=== PATIENT | female | born 1985 | race Caucasian/White ===

== ENCOUNTER → 2017-05-28 08:50 | Outpatient (CLI) | payer OTHER, SELFPAY ==
--- NOTE | 2017-05-28 08:54 | US_ITS ---
STUDY: RENAL ULTRASOUND - COMPLETE REASON FOR EXAM: Female, 31 years old. Febrile illness and back pain. TECHNIQUE: Ultrasound evaluation of the kidneys was performed with real-time and static silver-scale imaging. COMPARISON: None. FINDINGS: RIGHT KIDNEY: Normal location of the right kidney, which is normal in size. The right kidney measures 11.4 cm x 4.7 cm x 4.6 cm. There is a normal cortex of the right kidney. The renal cortex measures 1.8 cm. There is no right renal mass or cyst. There are no right renal calculi. There is no right hydronephrosis. DISTAL RIGHT URETER: There is non-visualization of the distal right ureter. There is no demonstrated right ureterovesical junction calculus. There is no demonstrated right ureteral jet. LEFT KIDNEY: Normal location of the left kidney, which is normal in size. The left kidney measures 12.2 cm x 4.5 cm x 4.5 cm. There is a normal cortex of the left kidney. The renal cortex measures 1.4 cm. There is no left renal mass or cyst. There are no left renal calculi. There is no left hydronephrosis. DISTAL LEFT URETER: There is non-visualization of the distal left ureter. There is no demonstrated left ureterovesical junction calculus. There is no demonstrated left ureteral jet. BLADDER: There is a normal wall thickness of the distended urinary bladder. There is no demonstrated mass within the urinary bladder. There are no demonstrated bladder calculi. US/Kidney and Bladder IMPRESSION: Normal ultrasound of the kidneys and urinary bladder. Electronically Signed: Janes Nuñez MD at 14:02 EST Tel [phone], Service support ,
== END ==
PROVIDERS: Family Provider Family Medicine; PCP Family Medicine; Visit Provider Family Medicine
DX: R50.9 Fever, unspecified (principal)
CPT/HCPCS: 76770

== ENCOUNTER → 2017-09-17 13:38 | Outpatient (CLI) | payer OTHER, SELFPAY ==
[2017-09-17 14:28] LABS: Absolute Lymphocyte Count 0.97 X10^3/ul (0.83-4.51); Absolute Neutrophil Count 4.2 X10^3/uL (2.0-7.7); Basophil# 0.03 X10^3/uL; Basophil% 0.5 % (0-1); Eosinophil# 0.04 X10^3/uL; Eosinophils% 0.7 % (0-5); Hematocrit 35.1 % (37-47); Hemoglobin 10.9 g/dl (12.0-15.0); Lymphocyte # 0.97 X10^3/ul (4.0); Lymphocyte % 17.4 % (19-41); Mean Corp Hgb Conc 31.1 g/gl (32-36); Mean Corpuscular Hgb 26.5 pg (27.0-32.0); Mean Corpuscular Volume 85.4 fL (81-99); Mean Platelet Vol. 11.4 fl (6.2-12.0); Monocyte# 0.37 X10^3/uL; Monocyte% 6.6 % (0-10); Neutrophil # 4.16 X10^3/uL (2.7-7.7); Neutrophil % 74.8 % (47-70); Platelet Count 348 K/mm3 (150-450); RBC Distribution Width CV 15.1 % (11.6-14.6); RBC Distribution Width SD 47.4 fl (35.1-43.9); Red Blood Count 4.11 M/mm3 (4.2-5.4); White Blood Count 5.6 K/mm3 (4.4-11.0)
[2017-09-17 14:29] LABS: POSITIVE COUNT NO; POSITIVE DIFFERENTIAL NO; POSITIVE MORPHOLOGY NO
[2017-09-17 14:46] LABS: Anion Gap 8 (5-15); BUN 10 mg/dL (7-18); BUN/Creat Ratio 18.1 RATIO (10-20); Calcium,Total 8.5 mg/dL (8.5-10.1); Chloride 106 mmol/L (98-107); Creatinine, Serum 0.55 mg/dL (0.55-1.02); EST Glomerular Filtration Rate 135 mL/min (>60); Est Glom Filt Rate - Afr Amer 163 mL/min (>60); Glucose 80 mg/dL (74-106); Potassium 3.9 mmol/L (3.5-5.1); Sodium Level 141 mmol/L (136-145)
== END ==
PROVIDERS: Family Provider Family Medicine; PCP Family Medicine; Visit Provider Family Medicine
DX: R55 Syncope and collapse (principal)
CPT/HCPCS: 36415; 80048; 85025

== ENCOUNTER → 2017-12-10 15:33 | Outpatient (CLI) | payer OTHER, SELFPAY ==
[2017-12-10 17:48] LABS: Anion Gap 11 (5-15); BUN 9 mg/dL (7-18); BUN/Creat Ratio 14.2 RATIO (10-20); Calcium,Total 8.9 mg/dL (8.5-10.1); Chloride 106 mmol/L (98-107); Creatinine, Serum 0.63 mg/dL (0.55-1.02); EST Glomerular Filtration Rate 115 mL/min (>60); Est Glom Filt Rate - Afr Amer 139 mL/min (>60); Glucose 85 mg/dL (74-106); Magnesium 2.4 mg/dL (1.6-2.6); Potassium 4.2 mmol/L (3.5-5.1); Sodium Level 142 mmol/L (136-145)
[2017-12-10 18:27] LABS: Absolute Lymphocyte Count 1.14 X10^3/ul (0.83-4.51); Absolute Neutrophil Count 4.4 X10^3/uL (2.0-7.7); Basophil# 0.02 X10^3/uL; Basophil% 0.3 % (0-1); Eosinophil# 0.05 X10^3/uL; Eosinophils% 0.8 % (0-5); Hematocrit 36.5 % (37-47); Hemoglobin 11.5 g/dl (12.0-15.0); Lymphocyte # 1.14 X10^3/ul (4.0); Lymphocyte % 18.8 % (19-41); Mean Corp Hgb Conc 31.5 g/gl (32-36); Mean Corpuscular Hgb 27.3 pg (27.0-32.0); Mean Corpuscular Volume 86.5 fL (81-99); Mean Platelet Vol. 11.9 fl (6.2-12.0); Monocyte# 0.49 X10^3/uL; Monocyte% 8.1 % (0-10); Neutrophil # 4.38 X10^3/uL (2.7-7.7); Platelet Count 309 K/mm3 (150-450); RBC Distribution Width CV 14.9 % (11.6-14.6); RBC Distribution Width SD 46.4 fl (35.1-43.9); Red Blood Count 4.22 M/mm3 (4.2-5.4); White Blood Count 6.1 K/mm3 (4.4-11.0)
[2017-12-10 18:34] LABS: POSITIVE COUNT NO; POSITIVE DIFFERENTIAL NO; POSITIVE MORPHOLOGY NO
== END ==
PROVIDERS: Family Provider Family Medicine; PCP Family Medicine; Visit Provider Family Medicine
DX: R42 Dizziness and giddiness (principal)
CPT/HCPCS: 36415; 80048; 83735; 85025

== ENCOUNTER → 2017-12-15 10:44 | Outpatient (CLI) | payer OTHER, SELFPAY ==
--- NOTE | 2017-12-15 13:23 | STRESSREP ---
Stress Test Report Date: 12/15/2017 Procedure: Exercise tolerance test Indications: Chest pain; palpitations Consent: Per the patient Procedure: The patient exercised on a Campos protocol for 9 minutes and 30 seconds completing Stage 3 and 30 seconds of Stage IV achieving a peak heart rate of 184 bpm (98 % predicted maximal heart rate) with a peak blood pressure 152/84 mmHg and a peak MET capacity of approximately 10 MET's. The baseline ECG demonstrated normal sinus rhythm. The peak exercise ECG demonstrated no obvious ECG changes. There were no cardiac dysrhythmias pretest, during exercise, or recovery. The functional capacity was considered good. The patient had no complaint of chest discomfort during exercise or recovery. The examination was discontinued secondary to dyspnea. Impression: 1. Technically adequate (percent predicted maximal heart rate greater than 85%) exercise tolerance test 2. Negative (adequate) ECG exercise tolerance test 3. No cardiac dysrhythmias during exercise or recovery This note was generated with Viewsteration software. It may contain incorrect words, spelling, and punctuation that were not noted in checking the note before signing.
== END ==
PROVIDERS: Family Provider Family Medicine; PCP Family Medicine; Visit Provider Internal Medicine Cardiovascular Disease
DX: R07.9 Chest pain, unspecified (principal); R00.2 Palpitations
CPT/HCPCS: 93017

== ENCOUNTER → 2017-12-18 08:55 | Outpatient (CLI) | payer OTHER, SELFPAY | PROVIDERS: Family Provider Family Medicine; PCP Family Medicine; Visit Provider Family Medicine | DX: R53.83 Other fatigue (principal) | CPT/HCPCS: 36415; 84443 ==

== ENCOUNTER → 2018-03-31 12:11 | Outpatient (CLI) | payer OTHER, SELFPAY | PROVIDERS: Family Provider Family Medicine; PCP Family Medicine; Referring Provider Family Medicine; Visit Provider Family Medicine | DX: R50.9 Fever, unspecified (principal) | CPT/HCPCS: 87070; 87077; 87086; 87088; 87186 ==

== ENCOUNTER → 2018-06-09 11:54 | Outpatient (CLI) | payer OTHER, SELFPAY ==
--- NOTE | 2018-06-09 11:59 | RAD_ITS ---
STUDY: X-RAY - LEFT TIBIA AND FIBULA REASON FOR EXAM: Female, 32 years old. Nodule on anterior lower leg. TECHNIQUE: 2 view(s) of the tibia and fibula were obtained. COMPARISON: None. FINDINGS: There is no evidence of fracture or dislocation. There are no significant degenerative changes. There are no radiodense foreign bodies. There is no soft tissue lesion identified. RAD/Tibia & Fibula 2 Views IMPRESSION: No fracture or dislocation. No soft tissue lesion identified. If indicated, further evaluation with ultrasound, CT or MRI can be performed. Electronically Signed: Bayron Gates, at 14:48 EST Tel , Service support ,
== END ==
PROVIDERS: Family Provider Family Medicine; PCP Family Medicine; Referring Provider Family Medicine; Visit Provider Family Medicine
DX: R22.9 Localized swelling, mass and lump, unspecified (principal)
CPT/HCPCS: 73590

== ENCOUNTER → 2018-06-21 08:31 | Outpatient (CLI) | payer OTHER, SELFPAY ==
--- NOTE | 2018-06-21 08:33 | US_ITS ---
STUDY: SUPERFICIAL ULTRASOUND - LEFT LOWER EXTREMITY REASON FOR EXAM: Female, 32 years old. 2 palpable lumps of left lower extremity TECHNIQUE: A superficial ultrasound was performed with real-time and static cespedes-scale imaging. COMPARISON: None. FINDINGS: There are 2 subcutaneous hypoechoic nodules with minimal internal vascularity. There is no surrounding architectural distortion. The nodule located anterior and superior to the left foot measures 1.0 x 0.8 x 0.6 cm. The second nodule of the anterior mid left leg measures 0.8 x 0.7 x 0.4 cm. US/Ext Non Vasc Limited/Soft Tiss IMPRESSION: Well-defined hypoechoic subcutaneous nodules of the left leg as described above. Electronically Signed: Leroy Eason MD at 19:37 EST , Service support ,
== END ==
PROVIDERS: Family Provider Family Medicine; PCP Family Medicine; Referring Provider Family Medicine; Visit Provider Family Medicine
DX: R22.42 Localized swelling, mass and lump, left lower limb (principal)
CPT/HCPCS: 76882

== ENCOUNTER → 2018-08-02 | Outpatient (CLI) | payer OTHER, SELFPAY ==
[2018-07-12 13:12] VITALS: BMI 27.3
--- NOTE | 2018-08-02 13:56 | BI_ITS ---
MAMMOGRAPHY - BILATERAL DIAGNOSTIC REASON FOR EXAM: Female, 32 years old. Right axillary lump. PERTINENT HISTORY: Grandmother with breast cancer. TECHNIQUE: Digital bilateral breast rosa (3D mammographic acquisition) in the CC and MLO projections. 2-D mediolateral oblique (MLO) and craniocaudad (CC) views of both breasts were obtained. CAD: Full Field Digital Mammography with Computer Added Detection was performed. COMPARISON: None. Baseline examination. FINDINGS: Breast Composition: The breasts are extremely dense, which lowers the sensitivity of mammography. There is a 0.84 cm x 1 cm well-defined nodule in the upper lateral aspect of the right breast. Correlation with ultrasound is recommended. No other significant abnormalities are identified. BI/DIAG MAMM W/CAD, BILAT IMPRESSION: 0.84 cm x 1 cm well-defined nodule in the upper lateral aspect of the right breast. Correlation with ultrasound is recommended. Ultrasound correlation is also recommended for the palpable right axillary density. ASSESSMENT CATEGORY: BIRADS Category 0: Incomplete. Need additional imaging evaluation. A letter regarding these results will be sent to the patient by the facility within 30 days. Approximately 10% of breast cancers are not detected by mammography. A normal mammogram should not delay biopsy of a clinically suspicious abnormality. Electronically Signed: Jnaes Nuñez, at 9:31 EDT , Service support ,
--- NOTE | 2018-08-02 14:44 | US_ITS ---
STUDY: ULTRASOUND BREAST - RIGHT REASON FOR EXAM: Female, 32 years old. Right axillary lump. TECHNIQUE: Axial and longitudinal images of the RIGHT breast were performed with a high resolution ultrasound transducer. COMPARISON: Comparison is made with prior mammogram done earlier in the day. FINDINGS: RIGHT Breast: The palpable abnormality corresponds to 1.3 cm x 0.6 cm x 0.4 cm benign-appearing lymph node. US/Breast Limited Unilateral IMPRESSION: The palpable abnormality corresponds to 1.3 cm x 0.6 cm x 0.4 cm benign-appearing lymph node. ASSESSMENT CATEGORY: BIRADS Category 2: Benign. A letter regarding these results will be sent to the patient by the facility within 30 days. Electronically Signed: Janes Nuñez, at 9:27 EDT , Service support ,
== END | disposition home or self-care (01) ==
PROVIDERS: Family Provider Family Medicine; PCP Family Medicine; Referring Provider Family Medicine; Visit Provider Family Medicine
DX: R22.31 Localized swelling, mass and lump, right upper limb (principal); N63.10 Unspecified lump in the right breast, unspecified quadrant
CPT/HCPCS: 76642; 77062; 77066; G0279

== ENCOUNTER → 2018-08-10 13:54 | Outpatient (CLI) | payer OTHER, SELFPAY ==
[2018-08-04 08:46] VITALS: BMI 27.3
--- NOTE | 2018-08-10 14:03 | US_ITS ---
STUDY: ULTRASOUND TRANSVAGINAL CLINICAL: Female, 32 years old. Irregular menses TECHNIQUE: Transabdominal and Transvaginal COMPARISON: None. FINDINGS: Normal uterine size measuring 7 x 4.6 x 4.2 cm in maximal craniocaudal dimension. There are no myometrial masses. Normal endometrial thickness measuring 13 mm. There are no endometrial masses, and there is no fluid in the endometrial cavity. Normal uterine cervix. Normal right ovary, measuring 2.5 x 2.5 x 1.6 cm. There is a cyst measuring 1.1 x 1.3 x 1.2 cm Normal left ovary, measuring 3.3 x 2.2 x 1.8 cm. There is a cyst measuring 2.4 x 2.1 x 1.9 cm There is trace of free fluid in the pelvis. Polycystic ovary disease: No. US/Pelvic (Non ) IMPRESSION: Small bilateral ovarian cysts and trace of fluid in the cul-de-sac possibly on the basis of recent ovulation Thickened endometrial lining of uncertain significance Electronically Signed: Yaw Campbell MD at 19:26 EDT , Service support ,
--- NOTE | 2018-08-10 14:03 | US_ITS ---
STUDY: ULTRASOUND TRANSVAGINAL CLINICAL: Female, 32 years old. Irregular menses TECHNIQUE: Transabdominal and Transvaginal COMPARISON: None. FINDINGS: Normal uterine size measuring 7 x 4.6 x 4.2 cm in maximal craniocaudal dimension. There are no myometrial masses. Normal endometrial thickness measuring 13 mm. There are no endometrial masses, and there is no fluid in the endometrial cavity. Normal uterine cervix. Normal right ovary, measuring 2.5 x 2.5 x 1.6 cm. There is a cyst measuring 1.1 x 1.3 x 1.2 cm Normal left ovary, measuring 3.3 x 2.2 x 1.8 cm. There is a cyst measuring 2.4 x 2.1 x 1.9 cm There is trace of free fluid in the pelvis. Polycystic ovary disease: No. US/Transvaginal Non- IMPRESSION: Small bilateral ovarian cysts and trace of fluid in the cul-de-sac possibly on the basis of recent ovulation Thickened endometrial lining of uncertain significance Electronically Signed: Yaw Campbell MD at 19:26 EDT , Service support ,
== END ==
PROVIDERS: Family Provider Family Medicine; PCP Family Medicine; Referring Provider Obstetrics & Gynecology; Visit Provider Obstetrics & Gynecology
DX: F32.81 Premenstrual dysphoric disorder (principal)
CPT/HCPCS: 76830; 76856; 93976

== ENCOUNTER → 2018-08-11 15:46 | Outpatient (CLI) | payer OTHER, SELFPAY ==
--- NOTE | 2018-08-11 | MASS_PTH ---
PATIENT: SOLANGE JARAMILLO LOC: [facility] U#:[id number] AGE/SX: 39/F ROOM: RE08/11/[address]: Dr. Mynor Lund MD : 1985 BED: DIS: SPEC #: [id number] RECD: 08/11/18 15:26 STATUS: SAKSHI MARIKA #: [id number] MERCEDEZ: 08/11/18 00:[address]: Mynor Lund DEPT: SURGICAL PATHOLOGY RECD BY: Jose Garcia ENTERED: 08/12/18 14:22 SP TYPE: Mass OTHR DR: Dr. Jamie Cruz MD Tissues: Leg, NOS Procedures: Surgery Specimen Level IV HEADER OPERATION: Excision of pretibial mass left lower leg PRE-OP DIAGNOSIS: Left lower extremity pretibial mass TISSUE SUBMITTED: Left lower leg MICROSCOPIC DIAGNOSIS Left lower leg, biopsy: A minute focus of benign spindle cell proliferation, most consistent with schwannoma (0.5 cm in greatest dimension). Additional fragment of mature adipose tissue, consistent with lipoma. CARLOS ALBERTO:stan 08/13/18 COMMENT Immunohistochemistry ([id number]) supports the above diagnosis. Case has been reviewed in consultation with Dr. Anderson who concurs with the above diagnosis. IDC:AM MICROSCOPIC DESCRIPTION Slides are reviewed. GROSS DESCRIPTION Received in fixative is one container labeled with the patient's name and designated left lower leg. The specimen consists of multiple irregular fragments of hester-pink to yellow soft tissue that in aggregate measure 2 x 1.5 x 0.3 cm. The entire specimen is submitted in one cassette. / CARLOS ALBERTO:stan 08/12/18 TC:1 CPT: 32470
--- NOTE | 2018-08-11 | IMM_PTH ---
PATIENT: SOLANGE JARAMILLO LOC: [facility] U#:[id number] AGE/SX: 39/F ROOM: RE08/11/[address]: Dr. Mynor Lund MD : 1985 BED: DIS: SPEC #: [id number] RECD: 08/13/18 13:41 STATUS: SAKSHI REQ #: [id number] MERCEDEZ: 08/11/18 00:[address]: Mynor Lund DEPT: IMMUNOHISTOCHEMISTRY RECD BY: Meka Espinosa ENTERED: 08/13/18 13:46 SP TYPE: IMMUNO OTHR DR: Dr. Jamie Cruz MD Tissues: Left leg Procedures: CD31 (add) DESMIN (add) Vimentin (add) FACTOR VIII (add) Smooth Muscle Actin S-100 (add) PHYSICIAN & INSTITUTION [place] [phone] SPECIMEN INFORMATION: Tissue Source: Left lower leg Clinical Info: Left lower leg pretibial mass Specimen Number: [id number] CPT code: 80511, 10450 x5 METHODOLOGY: Deparaffinized sections of prefer/formalin-fixed tissue or PAP/DQ stained slides are incubated with monoclonal/polyclonal antibodies/oligonucleotide probes. Localization is made via biotin free immunoperoxidase method. Appropriate controls are performed and reacted as expected. Results on target cell population are indicated in the following table: RESULTS: ANTIBODY / CLONE RESULT Actin (1A4) positive, weak Desmin (CE-R-11) negative Vimentin (V9) positive CD31 (CARMELITA/70A) negative Factor VIII (R Ag) negative S-100 (4C4.9) positive These tests were developed and their performance characteristics determined by [facility]. They may not have been cleared or approved by the U.S. Food and Drug Administration. The FDA has determined that such clearance or approval is not necessary. INTERPRETATION: Pretibial mass, left lower leg, excision: Benign spindle cell lesion, most consistent with schwannoma. SJ:stan 08/16/18 Case has been reviewed in consultation with Dr. Anderson who concurs with the above diagnosis. IDC:AM
[2018-08-11 10:00] VITALS: BMI 27.3
== END ==
PROVIDERS: Family Provider Family Medicine; PCP Family Medicine; Referring Provider Surgery; Visit Provider Surgery
DX: R22.42 Localized swelling, mass and lump, left lower limb (principal)
CPT/HCPCS: 88305; 88341; 88342

== ENCOUNTER → 2018-11-10 14:26 | Outpatient (CLI) | payer OTHER, SELFPAY ==
[2018-08-18 13:31] VITALS: BMI 25.0
[2018-10-13 10:27] VITALS: BMI 25.4
--- NOTE | 2018-11-10 15:20 | NEURO ---
NCS and/or EMG Patient Report Ordering Doctor: Jamie Cruz DATE OF SERVICE: 11/10/18 Jenna uQiroga is a 33-year-old female presents for electrodiagnostic testing of the right upper limb. She reports numbness pain and tingling in the right arm. Electrodiagnostic findings: The right median motor nerve demonstrates normal distal latency, amplitude and conduction velocity. Normal right ulnar motor response. Normal median ulnar F-wave. Sensory responses are within normal limits. On needle EMG, all muscles tested in the right upper limb showed no evidence of denervation with normal motor unit action potentials. Electrodiagnostic impression: This is a normal electrodiagnostic study in the right upper limb. There is no electrodiagnostic evidence for peripheral neuropathy including carpal tunnel or cubital tunnel syndrome. There is no electrodiagnostic evidence for cervical radiculopathy. If there are any further questions, please do not hesitate to contact me.
== END ==
PROVIDERS: Family Provider Family Medicine; PCP Family Medicine; Referring Provider Family Medicine; Visit Provider Family Medicine
DX: R20.0 Anesthesia of skin (principal)
CPT/HCPCS: 95886; 95910

== ENCOUNTER 2019-01-28 06:19 | Day surgery (SDC) | payer OTHER, SELFPAY ==
[2018-10-13 10:27] VITALS: BMI 25.4
[2019-01-24 09:12] VITALS: BMI 25.7
[2019-01-28] VITALS (8 sets, daily range): BP systolic 117–158; BP diastolic 83–98; PULSE 80–94; RESP 16; TEMP 36.2–37.4; O2SAT 98–100; BMI 26.7
--- NOTE | 2019-01-28 06:21 | PCM.HP.BLA ---
Problem List (1) Subcutaneous nodule Status: Acute History and Physical Date of Admission: 01/28/19 Intake Visit Reasons: update h&p excision left ankle lesion 10-4 Rc Formation Testing Operator Required: No Is patient in pain?: No Allergies aloe vera [From Vagisil] Adverse Reaction (Intermediate, Verified 01/24/19 09:10) Exreme itching benzocaine [From Vagisil] Adverse Reaction (Intermediate, Verified 01/24/19 09:10) Exreme itching mineral oil [From Vagisil] Adverse Reaction (Intermediate, Verified 01/24/19 09:10) Exreme itching resorcinol [From Vagisil] Adverse Reaction (Intermediate, Verified 01/24/19 09:10) Exreme itching starch [From Vagisil] Adverse Reaction (Intermediate, Verified 01/24/19 09:10) Exreme itching vitamin E (d-alpha tocopherol) [From Vagisil] Adverse Reaction (Intermediate, Verified 01/24/19 09:10) Exreme itching vitamins A and D [From Vagisil] Adverse Reaction (Intermediate, Verified 01/24/19 09:10) Exreme itching fish oil Adverse Reaction (Verified 01/24/19 09:10) Vomiting strawberry Adverse Reaction (Verified 01/24/19 09:10) throat itching wheat Adverse Reaction (Verified 01/24/19 09:10) Vomiting Medications clonazepam 0.5 mg tablet 0.5 mg PO DAILY PRN tab 01/21/18 [History Confirmed 01/24/19] citalopram 20 mg tablet 20 mg PO DAILY #30 tab 10/13/18 [Rx Confirmed 01/24/19] norethindrone 1 mg-ethinyl estradiol 20 mcg (24)-iron 75 mg (4) tablet 1 tab PO QDAY #28 tab 11/24/18 [Rx Confirmed 01/24/19] [facility] Medical History Subcutaneous nodule (Acute) Near syncope (Acute) Dizziness and giddiness (Acute) Migraine (Acute) Sepsis (Acute) Toxic shock syndrome (Acute) Acute colitis (Inactive) Group A streptococcal bacteremia (Inactive) Hypocalcemia (Inactive) Hypokalemia (Inactive) Incomplete toxic shock syndrome (Inactive) Surgical History H/O section (Resolved) History of tonsillectomy (Resolved) S/P surgical manipulation of ankle joint (Resolved) Family History Father Hypertension Social History (Updated 01/24/19 @ 10:12 by Dinorah Stout PA-C) current occupational status: unemployed Smoking Status: Never smoker alcohol intake: current details: occasional substance use type: does not use caffeine: Yes Type: coffee Number of servings: 1 what type of physical activity do you participate in: walking seatbelt use: always do you feel safe at home: Yes 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 Patient denies recent hospitalization or illnesses. Patient denies change in medications. Patient's previous history: SOLANGE JARAMILLO, is a 32 F who presents to the office today for follow-up of left lower extremity skin lesion. Dr. Lund performed an excision of left lower pre-tibial mass on 08/11/18. Patient tolerated the procedure well. Pathology returned as a schwannoma. Patient also notes another lump within the left ankle and is questioning if these are the same thing. Patient denies previous complications with anesthesia. She denies cardiac history. ROS General General: Yes fatigue; no weight change, appetite, colon cancer, breast cancer or weakness HEENT HEENT: No difficulty swallowing, eye injury, eye surgery, swollen glands or hoarseness Endo Endocrine: No thyroid disease, diabetes mellitus, thyroid cancer, Hair loss, heat intolerance or cold intolerance Skin Skin: No rash or changing moles Breast Breast: No left breast lump, right breast lump, nipple discharge, breast pain, abnormal mammogram, abnormal US or breast enlargement Musc Musculoskeletal: No back problems, arthritis, rheumatoid arthritis, gout or joint pain Cardio Cardiovascular: No murmur, pacemaker, heart disease, atrial fibrillation, high blood pressure, heart attack, heart stent, palpitations, shortness of breat with exertion or chest pain Psych Psychiatric: Yes anxiety; no depression or hearing voices Resp Respiratory: No shortness of breath, No sleep apnea, No cough, No COPD, No asthma, No emphysema, No wheezing Gastro Gastrointestinal: No abdominal pain, No nausea or vomiting, No diarrhea, No constipation, No blood in stool, No acid reflux, No hemorrhoids, No ulcers, No gallbladder problem, No black,tarry stools Kee Hematologic: No blood thinners, No blood disorders, No bleeding, Yes anemia, No blood clots Neuro Neurologic: No weakness Exam Const General: cooperative, healthy appearing, comfortable, no acute distress HENMT Head: normal to inspection Eyes General: appearance normal, both eyes and all related structures Neck Neck: normal visual inspection Neck mass: No Chest Breast Palpation: No nipple discharge Resp Effort & Inspection: normal respiratory effort Auscultation: clear to auscultation bilaterally Cardio Rate: regular rate Rhythm: regular rhythm Heart Sounds: no murmurs GI Inspection: normal to inspection Palpation: soft Auscultation: normal bowel sounds Skin Other: Left anterior ankle region noting second lesion with similar appearance to previously excised left pre-tibial lesion. Neuro General: no focal motor deficits, CN's II-XI intact bilaterally Extrem General: normal to inspection Psych Appearance: grossly normal Affect: normal affect Assessment & Plan Problems 1. Subcutaneous nodule R22.[address] Lund will plan to perform an excision of the left ankle lesion in the OR under MAC local utilizing ultrasound and Kopan needle. Patient has been explained the procedure details, risks and benefits. Patient has had the opportunity to ask and have questions answered. Coding Level of Care Code No Charge Diagnoses Subcutaneous nodule R22.9 Comment Update H&P 01/24/19 1012 <Electronically signed by Dinorah Stout PA-C> Date Dinorah Stout PA-C Cosigner Signature: Date (if applicable) CC: ~ I have re-examined the patient. There are no clinical changes since date of exam.
[2019-01-28 06:42] LABS: Internal QC Validated? YES +Cl - CLEAR BKGD; Pregnancy, Urine Negative Negative
[2019-01-28] MEDS: Lactated Ringers 1,000 ML 100 ML IV (07:05)
--- NOTE | 2019-01-28 08:00 | MASS_PTH ---
PATIENT: SLOANGE JARAMILLO [place] [facility] [place] U[place][id number] AGE/SX: 33/F ROOM: RE01/28/[address]: Dr. Mynor Lund MD : 1985 BED: DIS: 01/28/2019 SPEC #: [id number] RECD: 01/28/19 12:58 STATUS: SAKSHI MARIKA #: [id number] MERCEDEZ: 01/28/19 08:[address]: Mynor Lund DEPT: SURGICAL PATHOLOGY RECD BY: Hamilton Gamez ENTERED: 01/28/19 13:34 SP TYPE: Mass OTHR DR: Dr. Jamie Cruz MD Tissues: Left ankle Procedures: Surgery Specimen Level IV HEADER OPERATION: Excision subcutaneous mass, left ankle PRE-OP DIAGNOSIS: Subcutaneous nodule R22.9 TISSUE SUBMITTED: Subfascial mass left ankle MICROSCOPIC DIAGNOSIS Left ankle mass, biopsy: Consistent with organizing thrombus and associated reactive change. AM:stan 01/31/19 MICROSCOPIC DESCRIPTION Slides are reviewed. GROSS DESCRIPTION Received in fixative is one container labeled with the patient's name and designated subfascial mass left ankle. The specimen consists of a piece of hester soft tissue measuring 0.5 x 0.5 x 0.3 cm. The entire specimen is submitted in one cassette. / SJ:rg 01/28/19 TC:5 CPT:83845
[2019-01-28] MEDS: Bupivacaine Mpf 0.5% 30 ML VIAL (08:20)
--- NOTE | 2019-01-28 08:41 | DCINST_ITS ---
Discharge Diet: Light diet - advance as tolerated - if you have questions about your diet instructions, please talk to you doctor. Discharge Activity: May Not Drive - for 1 day or while taking narcotic pain medicine. May shower in (days): 1 Lifting Restrictions: 10 pounds Call your doctor if your incision/area has: Continuous Slow Oozing, Sudden Increased Bleeding, Increased Pain/ Swelling, Increased Redness, Foul Smelling Discharge Call your doctor if you observe: Fever of 101 or Higher Suture Line Care: Avoid Pulling/Pushing, Avoid Pinching/Bending Additional Dressing/Incision Instructions:: Elevate your left leg for comfort. You may utilize support stockings for comfort. You may remove the plastic dressing in 3 days. You may then recover the incision with a Band-Aid. Allergies/Adverse Reactions: Allergies aloe vera [From Vagisil] Adverse Reaction (Intermediate, Verified 01/24/19 09:10) Exreme itching benzocaine [From Vagisil] Adverse Reaction (Intermediate, Verified 01/24/19 09:10) Exreme itching mineral oil [From Vagisil] Adverse Reaction (Intermediate, Verified 01/24/19 09:10) Exreme itching resorcinol [From Vagisil] Adverse Reaction (Intermediate, Verified 01/24/19 09:10) Exreme itching starch [From Vagisil] Adverse Reaction (Intermediate, Verified 01/24/19 09:10) Exreme itching vitamin E (d-alpha tocopherol) [From Vagisil] Adverse Reaction (Intermediate, Verified 01/24/19 09:10) Exreme itching vitamins A and D [From Vagisil] Adverse Reaction (Intermediate, Verified 01/24/19 09:10) Exreme itching fish oil Adverse Reaction (Verified 01/24/19 09:10) Vomiting strawberry Adverse Reaction (Verified 01/24/19 09:10) throat itching wheat Adverse Reaction (Verified 01/24/19 09:10) Vomiting Medications to take at Discharge clonazepam 0.5 mg tablet 0.5 mg PO DAILY PRN tab 01/21/18 Citalopram [Celexa] 20 mg PO QHS 01/28/19 Hydrocodone Bitart/Apap 5-325 [Cato 5MG-325MG] 1 tablet PO Q6H PRN PRN 2 Days #5 tablet 01/28/19 Norethindrone-E.estradiol-Iron [Tihzua-Otnezk-Si 1-0.02(67)-75] 1 tab PO QHS 01/28/19 The following prescriptions were given: Hydrocodone Bitart/Apap 5-325 [Cato 5MG-325MG] 1 tablet PO Q6H PRN PRN 2 Days #5 tablet PRN Reason: Pain Transmission Status: Sent to [id number] Primary Care Physician: Jamie Cruz MD [Primary Care Provider] - Test Results: Test results from this visit will be discussed in further detail at your follow- up appointment, if applicable. Please Follow Up With: Mynor Lund MD - [phone] When: Call to make an appointment to be seen in about 7 days.
--- NOTE | 2019-01-28 08:43 | OP.PCM_ITS ---
Problem List (1) Subcutaneous nodule Status: Acute Report of Operation Date of Procedure: 01/28/19 Pre-Operative Diagnosis: Left dorsal foot sub-fascial mass Post-Operative Diagnosis: Same Surgery/Procedure Performed:: Ultrasound-guided wire localization with subsequent excision of subfascial soft tissue mass left dorsal foot at the ankle mortise Description of Surgical Findings:: Timeout and informed consent was obtained. 33-year-old female was taken the operating table underwent monitored anesthesia care. The left lower extremity was sterilely prepped draped. 1% lidocaine mixed 50-50 with 0.5% Marcaine was used as local anesthetic. Ultrasound was performed demonstrating a very small 1 cm diameter mass lateral to the tibialis anterior. Local was instilled. 20- gauge Kopan's needle was advanced through the lesion under ultrasound guidance. 2 needles were placed into wires dislodged to assure localization. A total of 3 cc of local was used. A transverse incision was created. Subcutaneous tissue was then incised. Fascia incised and then blunt dissection was used to identify this brown cespedes-colored oblong mass. Tibialis anterior fascia was slightly elevated laterally blunt dissection was utilized vascular supply to the lesion was carefully secured with 4-0 Vicryl ligatures the lesion was completely circumferentially dissected free and teased free. I felt that I had completely excised it intact. Inspection failed to reveal any residual concerning portions of the lesion. Palpation failed to reveal any residual disease. Hemostasis had been obtained nicely with multiple 4-0 Vicryl ligatures. The fascia was reapproximated with 4-0 Vicryl. The subdermal tissues approximated the same. Skin is approximated simple sutures of 4-0 nylon. Telfa OpSite dressing applied followed by MISAEL hose. Sponge and instrument and needle counts were reported the surgeon be correct. Blood loss quite minimal. She was taken to the recovery room in satisfactory condition without apparent complication. Specimen is subfascial mass. Drains none. Blood loss minimal. Mynor Lund M.D., F.A.C.S. Type of Anesthesia:: Local MAC Anesthesiologist: Jung Barnes
== END 2019-01-28 09:40 | disposition home or self-care (01) ==
LOC: SDC 06:19 → AC 06:20
PROVIDERS: Anesthesiology; Family Provider Family Medicine; PCP Family Medicine; Referring Provider Surgery; Visit Provider Surgery
PROC: (CPT 27619; principal; 2019-01-28 07:50)
DX: R22.42 Localized swelling, mass and lump, left lower limb (principal)
CPT/HCPCS: 27619; 81025; 88305; J7120; J2405

== ENCOUNTER → 2019-04-14 10:56 | Outpatient (CLI) | payer OTHER, SELFPAY ==
[2019-04-14 10:20] VITALS: BMI 26.7
[2019-04-14 13:49] LABS: Estradiol 263.1 pg/mL; Follicle Stimulating Hormone 5.1 mIU/mL; Prolactin 9.1 ng/mL; T4 Free Direct 0.97 ng/dL (0.76-1.46); Thyroid Stim Hormone (TSH) 0.61 uIU/mL (0.358-3.74)
[2019-04-16 13:30] LABS: Testosterone Free 3.6 pg/mL (0.0-4.2)
== END ==
PROVIDERS: Family Provider Family Medicine; PCP Family Medicine; Visit Provider Obstetrics & Gynecology
DX: N93.9 Abnormal uterine and vaginal bleeding, unspecified (principal); N91.1 Secondary amenorrhea
CPT/HCPCS: 36415; 82670; 83001; 84146; 84402; 84439; 84443

== ENCOUNTER → 2019-04-14 12:51 | Outpatient (CLI) | payer OTHER, SELFPAY ==
[2019-04-14 10:20] VITALS: BMI 26.7
[2019-04-18 15:10] LABS: HPV APTIMA, High Risk Negative (Negative)
== END ==
PROVIDERS: Family Provider Family Medicine; PCP Family Medicine; Referring Provider Obstetrics & Gynecology; Visit Provider Obstetrics & Gynecology
DX: Z12.4 Encounter for screening for malignant neoplasm of cervix (principal)
CPT/HCPCS: 87624; 88175; G0145

== ENCOUNTER → 2020-01-04 15:09 | Outpatient (CLI) | payer OTHER, SELFPAY ==
[2019-04-14 10:20] VITALS: BMI 26.7
[2020-01-04 19:03] LABS: Absolute Lymphocyte Count 0.95 X10^3/uL (0.83-4.51); Absolute Neutrophil Count 7.1 X10^3/uL (2.0-7.7); Basophil# 0.04 X10^3/uL; Basophil% 0.5 % (0-1); Eosinophil# 0.03 X10^3/uL; Eosinophils% 0.3 % (0-5); Hematocrit 42.8 % (37-47); Hemoglobin 13.9 g/dL (12.0-15.0); Lymphocyte # 0.95 X10^3/ul (4.0); Lymphocyte % 10.9 % (19-41); Mean Corp Hgb Conc 32.5 g/dL (32-36); Mean Corpuscular Volume 95.5 fL (81-99); Mean Platelet Vol. 11.9 fl (6.2-12.0); Monocyte# 0.53 X10^3/uL; Monocyte% 6.1 % (0-10); NRBC Flagged by Analyzer 0 % (0-5); Neutrophil # 7.12 X10^3/uL (2.7-7.7); Platelet Count 306 K/mm3 (150-450); RBC Distribution Width CV 12.1 % (11.6-14.6); RBC Distribution Width SD 42.5 fl (35.1-43.9); Red Blood Count 4.48 M/mm3 (4.2-5.4); White Blood Count 8.7 K/mm3 (4.4-11.0)
[2020-01-04 19:31] LABS: ALB/GLOB Ratio 1.3 RATIO (0.9-2.4); AST(SGOT) 14 U/L (15-37); Alanine Aminotransfer ALT/SGPT 20 U/L (13-56); Albumin, Serum 4.4 g/dL (3.2-5.0); Alkaline Phosphatase 56 U/L (45-117); Anion Gap 5 (5-15); BUN 11 mg/dL (7-18); BUN/Creat Ratio 16.3 RATIO (10-20); Calcium,Total 9.6 mg/dL (8.5-10.1); Chloride 107 mmol/L (98-107); Creatinine, Serum 0.67 mg/dL (0.55-1.02); EST Glomerular Filtration Rate 106 mL/min (>60); Est Glom Filt Rate - Afr Amer 128 mL/min (>60); Globulin 3.5 g/dL (2.2-4.2); Glucose 102 mg/dL (74-106); Potassium 3.9 mmol/L (3.5-5.1); Protein, Total 7.9 g/dL (6.4-8.2); Sodium Level 139 mmol/L (136-145)
== END ==
PROVIDERS: PCP Family Medicine; Referring Provider Family Medicine; Visit Provider Family Medicine
DX: R10.9 Unspecified abdominal pain (principal)
CPT/HCPCS: 36415; 80053; 85025

== ENCOUNTER → 2020-01-04 15:46 | Outpatient (CLI) | payer OTHER, SELFPAY ==
[2019-04-14 10:20] VITALS: BMI 26.7
--- NOTE | 2020-01-04 15:55 | CT_ITS ---
STUDY: CT ABDOMEN AND PELVIS WITH CONTRAST REASON FOR EXAM: Female, 34 years old. Right sided abdomen pain intermittently x years, hx colitis with sepsis. Prior x 3. RADIATION DOSAGE (If Supplied By Facility): CTDIvol = ( 875 ) mGy, DLP = ( 543.24 ) mGycm TECHNIQUE: Transaxial images were obtained from the dome of the diaphragm to the symphysis pubis with oral contrast. Oral and amp; IV Gastrografin and amp; 100mL Isovue-300 was administered. Sagittal and coronal images were reconstructed. Individualized dose optimization techniques were used for this CT. COMPARISON: 2015 FINDINGS: The visualized lung bases are unremarkable. The visualized portions of the heart are within normal limits. Normal liver. Normal gallbladder and extrahepatic biliary system. Normal spleen. Normal pancreas. Normal bilateral adrenal glands. Normal right kidney. Normal left kidney. Normal visualized stomach. Normal small intestine. There is nonspecific submucosal thickening of the descending and sigmoid colon consistent with a focal colitis. There is no perforation or abscess. The appendix is visualized and appears normal. Appendix is best seen on coronal recon images 42-47 Normal abdominal aorta. Normal inferior vena cava. Normal retroperitoneum. Normal urinary bladder. Normal visualized uterus. No suspicious adnexal mass or free fluid Normal abdominal wall. Normal osseous structures. CT/Abdomen/Pelvis WITH Contrast IMPRESSION: Subtle nonspecific submucosal thickening in the descending and sigmoid colon consistent with colitis. No perforation or abscess is noted. No oral contrast has reached the colon so the evaluation is suboptimal. No suspicious solid organ abnormality Normal appendix visualized No suspicious adnexal mass or free fluid Electronically Signed: Lane Malin MD at 18:23 EDT , Service support ,
== END ==
PROVIDERS: PCP Family Medicine; Referring Provider Family Medicine; Visit Provider Family Medicine
DX: R10.9 Unspecified abdominal pain (principal)
CPT/HCPCS: 74177; Q9967

== ENCOUNTER → 2020-01-11 14:37 | Outpatient (CLI) | payer OTHER, SELFPAY ==
[2019-04-14 10:20] VITALS: BMI 26.7
[2020-01-11 18:18] LABS: CRP 3.92 mg/L (0.0-3.0)
[2020-01-13 20:07] LABS: Endomysial Antibody IgA Negative (Negative)
[2020-01-13 21:24] LABS: Immunoglobulin A 107 mg/dL (87-352); t-Transglutaminase IgA <2 U/mL (0-3)
== END ==
PROVIDERS: PCP Family Medicine; Referring Provider Internal Medicine Gastroenterology; Visit Provider Internal Medicine Gastroenterology
DX: R19.7 Diarrhea, unspecified (principal)
CPT/HCPCS: 36415; 82784; 83516; 86140; 86255

== ENCOUNTER → 2020-01-27 15:29 | Outpatient (CLI) | payer OTHER, SELFPAY ==
[2020-01-19 13:36] VITALS: BMI 26.7
--- NOTE | 2020-01-27 | IMM_PTH ---
PATIENT: SOLANGE JARAMILLO LOC: [facility] U#:[id number] AGE/SX: 39/F ROOM: RE01/27/[address]: Dr. Felipe Velazco MD : 1985 BED: DIS: SPEC #: [id number] RECD: 01/31/20 13:55 STATUS: SAKSHI REQ #: [id number] MERCEDEZ: 01/27/20 00:[address]: Felipe Velazco DEPT: IMMUNOHISTOCHEMISTRY RECD BY: Meka Espinosa ENTERED: 01/31/20 13:56 SP TYPE: IMMUNO OTHR DR: Dr. Jamie Cruz MD Tissues: A - Ileum, NOS Procedures: CD138 (add) CD20 (add) CD43 (add) CD45 (add) CD5 (add) CD79A (add) CD3 (initial) PHYSICIAN & INSTITUTION [place] [address] SPECIMEN INFORMATION: Tissue Source: A - Terminal ileum Clinical Info: Chronic diarrhea Specimen Number: [id number] CPT code: 15104, 40685 x6 METHODOLOGY: Deparaffinized sections of prefer/formalin-fixed tissue or PAP/DQ stained slides are incubated with monoclonal/polyclonal antibodies/oligonucleotide probes. Localization is made via biotin free immunoperoxidase method. Appropriate controls are performed and reacted as expected. Results on target cell population are indicated in the following table: RESULTS: ANTIBODY / CLONE RESULT Block A CD3 (PS1) positive CD5 (SP10) positive CD20 (L26) positive CD43 (L60) positive CD45 (RP2/18) positive CD79a (11E3) positive CD138 (B-A38) positive, focal These tests were developed and their performance characteristics determined by [facility]. They may not have been cleared or approved by the U.S. Food and Drug Administration. The FDA has determined that such clearance or approval is not necessary. The above immunohistochemical/dualISH markers are ordered and reviewed by the Pathologist. INTERPRETATION: A. Terminal ileum, biopsy: Polytypic, benign lymphoid aggregate. AM:stan 02/01/20
--- NOTE | 2020-01-27 | COLBX_PTH ---
PATIENT: SOLANGE JARAMILLO LOC: [facility] #:[id number] AGE/SX: 39/F ROOM: RE01/27/[address]: Dr. Felipe Velazco MD : 1985 BED: DIS: SPEC #: [id number] RECD: 01/27/20 15:14 STATUS: SAKSHI WALKERDedra #: [id number] MERCEDEZ: 01/27/20 00:[address]: Felipe Velazco DEPT: SURGICAL PATHOLOGY RECD BY: Joseline Anne ENTERED: 01/30/20 07:25 SP TYPE: COLON BX OTHR DR: Dr. Jamie Cruz MD [facility] Tissues: A - Ileum, NOS B - COLON BIOPSY Procedures: Surgery Specimen Level IV HEADER OPERATION: Colonoscopy with biopsies PRE-OP DIAGNOSIS: Chronic diarrhea TISSUE SUBMITTED: A - Terminal ileum biopsies, rule out Crohn's, B - Right and left colon biopsies, rule out microscopic colitis MICROSCOPIC DIAGNOSIS A. Terminal ileum, biopsy: Prominent benign lymphoid aggregates. No evidence of ileitis. See comment. B. Right and left colon, biopsies: No pathologic change. AM:stan 01/31/20 COMMENT A. Immunohistochemistry ([id number]) supports the above diagnosis. MICROSCOPIC DESCRIPTION Slides are reviewed. GROSS DESCRIPTION A - Received in fixative is one container labeled with the patient's name and designated terminal ileum biopsy. The specimen consists of multiple irregular fragments of light hester soft tissue that in aggregate measure 1 x 0.3 x 0.1 cm. The specimen is totally submitted in one cassette. B - Received in fixative is one container labeled with the patient's name and designated right and left colon biopsy. The specimen consists of multiple irregular fragments of light hester soft tissue that in aggregate measure 1 x 0.7 x 0.1 cm. The specimen is totally submitted in one cassette. / AM:stan 01/30/20 TC:5 CPT: 40595 x2
== END ==
PROVIDERS: PCP Family Medicine; Referring Provider Internal Medicine Gastroenterology; Visit Provider Internal Medicine Gastroenterology
DX: R19.7 Diarrhea, unspecified (principal)
CPT/HCPCS: 88305; 88341; 88342

== ENCOUNTER → 2020-02-24 18:07 | Outpatient (CLI) | payer OTHER, SELFPAY ==
[2020-01-19 13:36] VITALS: BMI 26.7
== END ==
PROVIDERS: PCP Family Medicine; Referring Provider Family Medicine; Visit Provider Family Medicine
DX: Z20.828 Contact with and (suspected) exposure to other viral communicable diseases (principal)
CPT/HCPCS: 87635; U0003

== ENCOUNTER → 2021-02-15 09:38 | Outpatient (CLI) | payer OTHER, SELFPAY ==
--- NOTE | 2021-02-15 09:46 | RAD_ITS ---
STUDY: X-RAY - RIGHT FOOT CLINICAL: Female, 35 years old. ANKLE FOOT PAIN TECHNIQUE: 3 view(s) of the foot. COMPARISON: None. FINDINGS: Normal talus, calcaneus, and tarsal bones. Normal visualized subtalar, talonavicular, calcaneocuboid, tarsal and tarsometatarsal articulations. Normal metatarsi. Normal metatarsophalangeal joint of the great toe. Normal tibial and fibular sesamoid bones. Normal interphalangeal joint of the great toe. Normal phalanges of the great toe. Normal second through fifth metatarsophalangeal joints. Normal interphalangeal joints and phalanges of the lesser toes. The soft tissue structures are unremarkable. RAD/Foot min 3 Views IMPRESSION: Normal x-ray examination of the foot. Electronically Signed: Leda Lopez MD at 13:02 EDT Tel , Service support ,
== END ==
PROVIDERS: PCP Family Medicine; Referring Provider Family Medicine; Visit Provider Family Medicine
DX: M65.9 Synovitis and tenosynovitis, unspecified (principal)
CPT/HCPCS: 73630

== ENCOUNTER → 2021-04-12 16:26 | Outpatient (CLI) | payer OTHER, SELFPAY ==
--- NOTE | 2021-04-12 16:45 | MRI_ITS ---
EXAM: MR RIGHT LOWER EXTREMITY WITHOUT INTRAVENOUS CONTRAST, ANKLE CLINICAL INDICATION: RIGHT ankle pain TECHNIQUE: Multiplanar and multisequence MR images of the right ankle without intravenous contrast. This report was created using [employer] report generation technology. COMPARISON: X-ray foot 02/15/2021. FINDINGS: LIGAMENTS: ANTERIOR TALOFIBULAR: Unremarkable. Intact. POSTERIOR TALOFIBULAR: Unremarkable. Intact. ANTERIOR TIBIOFIBULAR: Unremarkable. Intact. POSTERIOR TIBIOFIBULAR: Unremarkable. Intact. CALCANEOFIBULAR: Unremarkable. Intact. DELTOID: Unremarkable. Intact. SPRING: Unremarkable. Intact. LISFRANC: Unremarkable. Intact. TENDONS: ACHILLES: Unremarkable. Intact. FLEXOR: Unremarkable. Intact. EXTENSOR: Unremarkable. Intact. PERONEAL: Unremarkable. Intact. TIBIALIS ANTERIOR: Unremarkable. Intact. TIBIALIS POSTERIOR: Unremarkable. Intact. MUSCLES: Unremarkable. Normal bulk and signal. FLUID: Unremarkable. No joint effusion. SINUS TARSI: Unremarkable. Normal fat in the sinus tarsi. TARSAL TUNNEL: Unremarkable. PLANTAR FASCIA: Unremarkable. Intact. CARTILAGE: Unremarkable. No osteochondral lesion. Articular cartilage intact. BONES/JOINTS: (Nondisplaced acute fracture of the navicular bone with associated extensive bone marrow edema and a fracture line identified. No other acute or healing fracture or malalignment. Talar dome intact. OTHER SOFT TISSUES: Unremarkable. MRI/Lower Ext Joint Only (Routine) IMPRESSION: Nondisplaced acute fracture of the navicular bone with associated navicular bone marrow edema and a fracture line identified. Electronically Signed: Nitin Castellon MD at 0:53 EST Tel , Service support ,
== END ==
PROVIDERS: PCP Family Medicine; Referring Provider Podiatrist; Visit Provider Podiatrist
DX: M77.9 Enthesopathy, unspecified (principal)
CPT/HCPCS: 73721

== ENCOUNTER → 2021-11-28 | Outpatient (CLI) | payer OTHER, SELFPAY ==
[2021-11-28 18:12] LABS: Thyroid Stim Hormone (TSH) 0.68 uIU/mL (0.358-3.74)
== END | disposition home or self-care (01) ==
LOC: MFPLAB 14:57
PROVIDERS: PCP Family Medicine; Visit Provider Family Medicine
DX: R63.5 Abnormal weight gain (principal)
CPT/HCPCS: 36415; 84443

== ENCOUNTER → 2022-10-14 | Outpatient (CLI) | payer OTHER, SELFPAY ==
--- NOTE | 2022-10-14 16:23 | RAD_ITS ---
INDICATION: PAIN EXAMINATION/TECHNIQUE: X-RAY - RIGHT XR Foot Min 3 Views: Weightbearing views COMPARISON: Right foot radiographs from 02/15/2021 FINDINGS: SOFT TISSUES: No significant soft tissue swelling. No radiopaque foreign body detected. BONES/JOINTS: No acute fracture or subluxation. Normal alignment. Preservation of the joint space(s). No suspicious osseous lesion observed. RAD/Foot min 3 Views IMPRESSION: Negative right foot. Electronically Signed: Jim Keller MD at 23:10 EDT ,
== END | disposition home or self-care (01) ==
PROVIDERS: PCP Family Medicine; Referring Provider Podiatrist; Visit Provider Podiatrist
DX: S93.601A Unspecified sprain of right foot, initial encounter (principal)
CPT/HCPCS: 73630

== ENCOUNTER → 2022-11-05 | Outpatient (CLI) | payer OTHER, SELFPAY ==
--- NOTE | 2022-11-05 06:48 | MRI_ITS ---
STUDY: MRI RIGHT ANKLE WITHOUT CONTRAST REASON FOR EXAM: Female, 37 years old. History of navicular fracture. Pain for 4 months. TECHNIQUE: Standardized fat and water weighted pulse sequences were obtained in all 3 orthogonal planes. COMPARISON: Foot x-rays dated February 15, 2021. FINDINGS: Normal subcutis adipose space. Normal posterior tibialis tendon. Normal flexor digitorum longus tendon. Normal flexor hallucis longus tendon. Normal peroneus longus and brevis tendons. Normal tibialis anterior tendon. Normal extensor hallucis longus tendon. Normal extensor digitorum longus tendons. Normal Achilles tendon and teno-osseous insertion. Pre-Achilles bursitis (sagittal series 7 image 10). Normal plantar fascia. Normal plantar calcaneal tubercles. Normal intrinsic muscles of the rearfoot. Normal distal tibiofibular syndesmotic ligamentous complex. Normal lateral ligamentous complex. Normal subtalar ligaments and sinus tarsi. Normal deltoid ligamentous complexes. Normal plantar calcaneonavicular (spring) ligament. Mild arthrosis of the tibiotalar joint (sagittal series 7 images 11-13). Normal talar dome. Arthrosis of the subtalar joint with a joint effusion and small posterior ganglion cyst (sagittal series 7 images 7-13). Moderate arthrosis of the talonavicular joint (sagittal series 6 images 10-15). Normal calcaneocuboid articulation. Normal navicular-cuneiform articulations. Diffuse bone marrow edema within the navicular (sagittal series 7 images 9-19). MRI/Lower Ext Joint Only (Routine) IMPRESSION: Mild arthrosis of the tibiotalar, subtalar and talonavicular joints. Pre-Achilles bursitis. Diffuse bone marrow edema in the navicular. No other abnormality. Electronically Signed: Jung Hager MD at 9:55 EDT ,
== END | disposition home or self-care (01) ==
PROVIDERS: PCP Family Medicine; Referring Provider Podiatrist; Visit Provider Podiatrist
DX: M84.30XG Stress fracture, unspecified site, subsequent encounter for fracture with delayed healing (principal)
CPT/HCPCS: 73721

== ENCOUNTER 2023-01-06 08:30 | Outpatient (RCR) | payer OTHER, SELFPAY ==
--- NOTE | 2022-12-30 11:25 | HP.PTEVAL ---
Patient's Visit Information Visit Information Visit Information: SOLANGE JARAMILLO is a 37 year old F referred to Physical Therapy by Dr. Saniya Montana DPM with a diagnosis of Ankle/Foot Sprain- DJD. Date of Evaluation: 12/26/22 Physical Therapist: Juliette Turcios DPT Visit Plan Frequency: 2x /Week Duration: 4 Weeks Plan: Focus on proprioception and ankle stabilization- higher level activities- ankle isolator- challenged greater with DF/PF Subjective Subjective: Broke navicular bone 2 years ago- insidious onset- casted 8 weeks- seemed to be good- last 6-8 weeks total different pain- did an MRI- everything looked good- swelling an arthritis. Pain is located along the TALONAICULAR on the right foot. She had surgery on the right foot 2x on the exterior ankle in 8th and 10th grade. She had no issues in between. The pain comes and goes depends on activity. She does not take walks due to pain. Inclines- down is worse- more weakness going down more pain going up. Worst: 6/10 describes the pain burning and then turns achy. She has a convertible and getting out of the car it pops and isidro then went away- does not notice swelling. Best: 0/10. Eases: Ibuprofen. She has had an MRI. She does not do any sort of exercise due to pain. She does not have a pool. No N/T in the LE. When its at its worst she does have pain that is in the outside of her knee. Does not have any hip or back pain. No falls or buckling of the leg. Sleep: not disturbed. They have gotten this calmed down a lot- she feels like they have gotten it back to 50% calmed down and back to normal. She wears [employer]- does not wear orthotics and no ankle braces in her shoes- makes other things hurt. When she is home she is barefoot. PMHx: anxiety Meds: hydroxezine, clonomine PRN, Celebrex (will start when she gets it) Objective Objective: Posture: fair throughout- can correct with verbal cues Gait: no significant deviation noted- good shoes HR/TR: able but does roll out in heel raise at end range for stabilization SLS: 15 sec with increased sway and muscle activation Wobble Board: challenged with ant/posterior board> lateral board- increased discomfort in anterior tib Palpation: tender along anterior tib along mortise and medial malleolus superior ROM: WFL in all planes Strength: Core: fair, Hip: 4/5 IR/ER, Flexion/Abd:4+/5, Extn: 4/5, Knee: 5/5 Ankle: 4+/5 Inv/Ever, 4/5 DF/PF Flex: HS: moderate, Gastroc: moderate, Soleus: moderate Edema: none noted Balance/Special Test Scores Lower Extremity Functional Score: 67 Goals Goal 1:: Patient will be I with HEP and progression Goal Time Frame: 4-6 Weeks Goal 2:: Patient will SLS for 30 sec with increased muscle activation Goal Time Frame: 4-6 Weeks Goal 3:: Patient will report 80% improvement Goal Time Frame: 4-6 Weeks Rehabilitation Potential Physical Therapy Diagnosis: Patient presents with hypomobility- she has decreased LE and core strength/stabilization, proprioception, flex and muscular endurance leading to increased pain with ADL's. Rehabilitation Potential: Good Anticipated Interventions Patient/Client Instruction: Educate patient on: Benefits of Fitness Program Therapeutic Exercise to Include: Strength training, Endurance training, Balance training, Coordination, Agility training, Body mechanics, Postural training, Flexibilty training, Gait and locomotor training, Passive ROM, Active ROM, Dynamic Lumbar Stabilization and Scapular Strength/Stabilization Cryotherapy (ice pack, ice massage): Yes Thermo therapy (hot pack): Yes Text: Thank you for the opportunity to evaluate your patient. For Medicare and Medicare HMO plans, please review the plan of care and approve it. It will need to be FAXED BACK to us at [phone] for Medicare purposes. For Medicare only, by signing this I certify the plan of care. Please let me know if there are questions or concerns regarding this plan of care. Physician Signature: Date:
--- NOTE | 2023-04-23 08:48 | HP.PT.NRP ---
Patient Information Patient Information: SOLANGE JARAMILLO was seen in my office for initial evaluation on 12/26/22. The following Plan of Care was established for this patient: POC Established Initial Frequency: 2x /Week Initial Duration: 4 Weeks Anticipated Interventions Patient/Client Instruction: Educate patient on: Benefits of Fitness Program Therapeutic Exercise to Include: Strength training, Endurance training, Balance training, Coordination, Agility training, Body mechanics, Postural training, Flexibilty training, Gait and locomotor training, Passive ROM, Active ROM, Dynamic Lumbar Stabilization and Scapular Strength/Stabilization Cryotherapy (ice pack, ice massage): Yes Thermo therapy (hot pack): Yes Last Seen Last Seen: This patient was last seen in our office . Pertinent comments regarding their Physical therapy will appear below: Patient appropriate to be d/c and continue home exercise program. At this point I will be discontinuing this patient from physical therapy. I would be happy to see this patient again in the future if found appropriate by the physician. Thank you! Juliette Turcios DPT Balance/Gait/Functional tests Balance/Special Test Scores Lower Extremity Functional Score: 67
== END 2023-01-06 19:00 | disposition home or self-care (01) ==
LOC: PT 08:30
PROVIDERS: PCP Family Medicine; Referring Provider Podiatrist; Visit Provider Podiatrist
DX: M19.071 Primary osteoarthritis, right ankle and foot (principal); S93.601D Unspecified sprain of right foot, subsequent encounter
CPT/HCPCS: 97110; 97162

== ENCOUNTER → 2023-09-28 | Outpatient (CLI) | payer SELFPAY ==
[2023-09-28 14:43] LABS: Anion Gap 7 (5-15); BUN 10 mg/dL (7-18); BUN/Creat Ratio 14.6 RATIO (10-20); Calcium,Total 9.1 mg/dL (8.5-10.1); Chloride 108 mmol/L (98-107); Cholesterol 178 mg/dL (200); Creatinine, Serum 0.68 mg/dL (0.55-1.02); EST Glomerular Filtration Rate 102 mL/min (>60); Est Glom Filt Rate - Afr Amer 123 mL/min (>60); Glucose 97 mg/dL (74-106); High Density Lipoprotein 47 mg/dL; Potassium 3.8 mmol/L (3.5-5.1); Sodium Level 138 mmol/L (136-145); Thyroid Stim Hormone (TSH) 0.75 uIU/mL (0.358-3.74); Triglycerides 103 mg/dL; Very Low Density Lipoprotein 21 mg/dL (5-40)
== END | disposition home or self-care (01) ==
PROVIDERS: PCP Family Medicine; Referring Provider Family Medicine; Visit Provider Family Medicine
DX: Z00.00 Encounter for general adult medical examination without abnormal findings (principal); E66.9 Obesity, unspecified
CPT/HCPCS: 36415; 80048; 80061; 84443